=== PATIENT | female | born 1940 | race Hispanic/Latino ===

== ENCOUNTER 2019-11-30 17:32 | Inpatient (IN) | payer MEDICARE, OTHER ==
[~2019-11-30] VITALS: Ht 162.6 cm; Wt 79.4 kg
[2019-11-30] MEDS ORDERED: SODIUM CHLORIDE 0.9% 1000ML 1,000 ML IV STA ×3 (17:39→18:26)
[2019-11-30 18:27] LABS: BASOPHILS % 0.4 % (0.0-1.0); EOSINOPHILS % 0.1 % (0.0-6.0); HEMATOCRIT 31.4 % (34.2-44.1); LYMPHOCYTES # (AUTO) 1.8 (1.0-3.2); LYMPHOCYTES % 16.2 % (18.0-39.1); MEAN CORPUSCULAR HEMOGLOBIN 29.8 pg (28-32); MEAN CORPUSCULAR HGB CONC 31.8 g/dL (31-35); MEAN CORPUSCULAR VOLUME 93.5 fL (81-99); MONOCYTES # (AUTO) 0.3 (0.2-0.8); MONOCYTES % 2.8 % (4.4-11.3); NEUTROPHILS # (AUTO) 8.9 (2.1-6.9); NEUTROPHILS % 80.1 % (38.7-80.0); PLATELET COUNT 166 x10e3/uL (140-360); RED BLOOD COUNT 3.36 x10e6/uL (3.6-5.1); RED CELL DISTRIBUTION WIDTH 12.7 % (11.7-14.4)
--- NOTE | 2019-11-30 18:33 | Diagnostic Imaging Report ---
Examination: Single AP view of the chest. COMPARISON: None. INDICATION: Status post fall, syncope IMPRESSION: 1. Lines and Tubes: None 2. Lungs are grossly clear. No consolidation or effusion. 3. Cardiomediastinal silhouette is normal. Pulmonary vasculature is normal. Atherosclerotic calcification of the aortic arch. 4. No acute bony abnormalities. Signed by: Dr. Mark Bartlett M.D. on 11/30/2019 6:30 PM
--- NOTE | 2019-11-30 18:34 | Diagnostic Imaging Report ---
CT BRAIN WO HISTORY: Fall COMPARISON: None. Technique: Noncontrast axial scans were obtained from skull base to the vertex. Coronal and sagittal reconstructions obtained from the axial data. One or more of the following dose reduction techniques were used: Automated exposure control, adjustment of the mA and/or kV according to patient size, and/or utilization of iterative reconstruction technique. DISCUSSION: Scalp/Skull: Small subcutaneous calcified nodule in the right parietal scalp may be an inclusion cyst. No calvarial fracture. Brain sulci: Mildly prominent. Ventricles: Compensatory dilatation. Extra-axial spaces: Focal prominence of the subarachnoid space posterior to the cerebellar vermis could be due to an arachnoid cyst or a brittani cisterna magna. No additional masses or fluid collections. Carotid and vertebral artery calcifications are present. Parenchyma: Mild bilateral deep white matter hypodensity is likely chronic microvascular ischemic change. Otherwise, no masses, hemorrhage, or large vascular territory acute infarct. Dural sinuses: No abnormal densities. Sellar/Suprasellar region: Intact. Skull base: Intact. Incidental findings: Bilateral ocular lens replacement. IMPRESSION: 1. No acute intracranial abnormalities. 2. Mild supratentorial chronic microvascular ischemic change. Generalized cerebral volume loss. Signed by: Dr. Simon Krishnan M.D. on 11/30/2019 6:30 PM
[2019-11-30 18:41] LABS: PARTIAL THROMBOPLASTIN TIME 28.6 seconds (23.8-35.5)
[2019-11-30 18:46] LABS: INR 0.92; PROTHROMBIN TIME 12.9 seconds (11.9-14.5)
[2019-11-30 18:48] LABS: ALBUMIN 3.7 g/dL (3.5-5.0); ALBUMIN/GLOBULIN RATIO 1.1 (0.8-2.0); ANION GAP 18.6 mmol/L (8-16); CALCIUM 9.2 mg/dL (8.4-10.2); CREATININE, SERUM 2.3 mg/dL (0.57-1.11); POTASSIUM 3.6 mmol/L (3.5-5.1)
[2019-11-30 18:55] LABS: CREATINE KINASE MB 1.5 ng/mL (0-5.0)
--- NOTE | 2019-11-30 19:02 | Emergency Department Note ---
History of Present Illnes History of Present Illness Chief Complaint: General Medicine Complaints History of Present Illness This is a 79 year old female brought by her brother who reported pt had syncopal episode that lasted 1-3 minutes while eating dinner - he tried to arouse her but could not, eventually pt came to and he tried to load pt into vehicle and she passed out again; pt taken to room 5 and during triage pt actively seizing dr kincaid immediately notified ekg done crash cart brought into room and pt hooked up to [employer] bilateral ac 20 g established blood drawn and per md orders taken to ct stat does not smoke/drink. Historian: Family Member Arrival Mode: Car History limited by: condition of the patient Worm Grower Required: No Onset (how long ago): minute(s) Quality: passed out Radiation: non-radiation Severity: severe Onset quality: sudden Timing of current episode: intermittent Progression: waxing and waning Chronicity: new Relieving factors: none Exacerbating factors: none Associated symptoms: syncope Treatments prior to arrival: none Past Medical/Family History Physician Review I have reviewed the patient's past medical and family history. Any updates have been documented here. Past Medical History Recent Fever: No Clinical Suspicion of Infectio: No New/Unexplained Change in Ment: No Past Medical History: Hypertension, Diabetes, Hyperlipedemia Other Medical History: dementia Past Surgical History: Knee Replacement, Back Surgery Social History Smoking Cessation: Never Smoker Counseling Performed: No Alcohol Use: None Any Illegal Drug Use: No TB Exposure/Symptoms: No Physically hurt or threatened: No Family History Family history of heart diseas: Yes Other Any Pre-Existing Lines (PICC,: No Review of Systems Review of Systems Constitutional: weakness EENTM: no symptoms Cardiovascular: syncope Respiratory: no symptoms Gastrointestinal: no symptoms Genitourinary: no symptoms Musculoskeletal: no symptoms Neurological: no symptoms Psychological: no symptoms Endocrine: no symptoms Hematological/Lymphatic: no symptoms Review of other systems All other systems reviewed and negative. Physical Exam Related Data Allergies: Coded Allergies: Penicillins (Verified Allergy, Unknown, 11/30/19) Triage Vital Signs Vital Signs Date Time Temp Pulse Resp B/P (MAP) Pulse Ox O2 Delivery O2 Flow Rate FiO2 11/30/19 17:59 98.6 27 16 97/50 98 Vital signs reviewed: Yes Physical Exam CONSTITUTIONAL Constitutional: well-developed, ill appearing, other HENT HENT: normocephalic, atraumatic, oropharynx clear/moist, nose normal HENT L/R: left ext ear normal, right ext ear normal EYES Eyes: PERRL (pupils pinpt and non-reactive), conjunctivae normal NECK PULMONARY Pulmonary: breath sounds normal, other (decreased effort) CARDIOVASCULAR Cardiovascular: irregular rhythm, bradycardia GASTROINTESTINAL Abdominal: soft, nontender, bowel sounds normal GENITOURINARY Genitourinary: exam deferred SKIN Skin: warm, dry MUSCULOSKELETAL Musculoskeletal: ROM normal NEUROLOGICAL Neurological: no gross motor or sensory deficits, other (pt woke with painful stimuli, oriented to name/place not time) PSYCHOLOGICAL Psychological: other (flat affect) Results Laboratory Result Diagram: 11/30/19 1800 Laboratory Laboratory Tests Test 11/30/19 18:30 11/30/19 18:20 11/30/19 18:00 Magnesium Level 1.9 MG/DL (1.3-2.1) White Blood Count 11.04 x10e3/uL (4.8-10.8) Red Blood Count 3.36 x10e6/uL (3.6-5.1) Hemoglobin 10.0 g/dL (12.0-16.0) Hematocrit 31.4 % (34.2-44.1) Mean Corpuscular Volume 93.5 fL (81-99) Mean Corpuscular Hemoglobin 29.8 pg (28-32) Mean Corpuscular Hemoglobin Concent 31.8 g/dL (31-35) Red Cell Distribution Width 12.7 % (11.7-14.4) Platelet Count 166 x10e3/uL (140-360) Neutrophils (%) (Auto) 80.1 % (38.7-80.0) Lymphocytes (%) (Auto) 16.2 % (18.0-39.1) Monocytes (%) (Auto) 2.8 % (4.4-11.3) Eosinophils (%) (Auto) 0.1 % (0.0-6.0) Basophils (%) (Auto) 0.4 % (0.0-1.0) Neutrophils # (Auto) 8.9 (2.1-6.9) Lymphocytes # (Auto) 1.8 (1.0-3.2) Monocytes # (Auto) 0.3 (0.2-0.8) Eosinophils # (Auto) 0.0 (0.0-0.4) Basophils # (Auto) 0.0 (0.0-0.1) Absolute Immature Granulocyte (auto 0.04 x10e3/uL (0-0.1) Prothrombin Time 12.9 seconds (11.9-14.5) Prothromb Time International Ratio 0.92 Activated Partial Thromboplast Time 28.6 seconds (23.8-35.5) Sodium Level 139 mmol/L (136-145) Potassium Level 3.6 mmol/L (3.5-5.1) Chloride Level 104 mmol/L (98-107) Carbon Dioxide Level 20 mmol/L (22-29) Anion Gap 18.6 mmol/L (8-16) Blood Urea Nitrogen 37 mg/dL (7-26) Creatinine 2.30 mg/dL (0.57-1.11) Estimat Glomerular Filtration Rate 21 ML/MIN (60-) BUN/Creatinine Ratio 16 (6-25) Glucose Level 308 mg/dL (74-118) Calcium Level 9.2 mg/dL (8.4-10.2) Total Bilirubin 0.7 mg/dL (0.2-1.2) Aspartate Amino Transf (AST/SGOT) 30 IU/L (5-34) Alanine Aminotransferase (ALT/SGPT) 46 IU/L (0-55) Alkaline Phosphatase 92 IU/L (40-150) Creatine Kinase 96 IU/L (29-168) Creatine Kinase MB 1.50 ng/mL (0-5.0) Troponin I 0.012 ng/mL (0-0.300) Total Protein 7.2 g/dL (6.5-8.1) Albumin 3.7 g/dL (3.5-5.0) Globulin 3.5 g/dL (2.3-3.5) Albumin/Globulin Ratio 1.1 (0.8-2.0) Laboratory Tests Test 11/30/19 18:00 White Blood Count 11.04 x10e3/uL (4.8-10.8) Red Blood Count 3.36 x10e6/uL (3.6-5.1) Hemoglobin 10.0 g/dL (12.0-16.0) Hematocrit 31.4 % (34.2-44.1) Mean Corpuscular Volume 93.5 fL (81-99) Mean Corpuscular Hemoglobin 29.8 pg (28-32) Mean Corpuscular Hemoglobin Concent 31.8 g/dL (31-35) Red Cell Distribution Width 12.7 % (11.7-14.4) Platelet Count 166 x10e3/uL (140-360) Neutrophils (%) (Auto) 80.1 % (38.7-80.0) Lymphocytes (%) (Auto) 16.2 % (18.0-39.1) Monocytes (%) (Auto) 2.8 % (4.4-11.3) Eosinophils (%) (Auto) 0.1 % (0.0-6.0) Basophils (%) (Auto) 0.4 % (0.0-1.0) Neutrophils # (Auto) 8.9 (2.1-6.9) Lymphocytes # (Auto) 1.8 (1.0-3.2) Monocytes # (Auto) 0.3 (0.2-0.8) Eosinophils # (Auto) 0.0 (0.0-0.4) Basophils # (Auto) 0.0 (0.0-0.1) Absolute Immature Granulocyte (auto 0.04 x10e3/uL (0-0.1) Lab results reviewed: Yes Laboratory comments renal insufficiency Imaging Imaging results reviewed: Yes Impressions CT BRAIN WO HISTORY: Fall COMPARISON: None. Technique: Noncontrast axial scans were obtained from skull base to the vertex. Coronal and sagittal reconstructions obtained from the axial data. One or more of the following dose reduction techniques were used: Automated exposure control, adjustment of the mA and/or kV according to patient size, and/or utilization of iterative reconstruction technique. DISCUSSION: Scalp/Skull: Small subcutaneous calcified nodule in the right parietal scalp may be an inclusion cyst. No calvarial fracture. Brain sulci: Mildly prominent. Ventricles: Compensatory dilatation. Extra-axial spaces: Focal prominence of the subarachnoid space posterior to the cerebellar vermis could be due to an arachnoid cyst or a brittani cisterna magna. No additional masses or fluid collections. Carotid and vertebral artery calcifications are present. Parenchyma: Mild bilateral deep white matter hypodensity is likely chronic microvascular ischemic change. Otherwise, no masses, hemorrhage, or large vascular territory acute infarct. Dural sinuses: No abnormal densities. Sellar/Suprasellar region: Intact. Skull base: Intact. Incidental findings: Bilateral ocular lens replacement. IMPRESSION: 1. No acute intracranial abnormalities. 2. Mild supratentorial chronic microvascular ischemic change. Generalized cerebral volume loss. Signed by: Dr. Simon Krishnan M.D. on 11/30/2019 6:30 PM Examination: Single AP view of the chest. COMPARISON: None. INDICATION: Status post fall, syncope IMPRESSION: 1. Lines and Tubes: None 2. Lungs are grossly clear. No consolidation or effusion. 3. Cardiomediastinal silhouette is normal. Pulmonary vasculature is normal. Atherosclerotic calcification of the aortic arch. 4. No acute bony abnormalities. Signed by: Dr. Mark Bartlett M.D. on 11/30/2019 6:30 PM Diagnostics Tests Diagnostic test(s) reviewed: Yes Procedures 12 Lead ECG Interpretation Worm Grower: Interpreted by ED physician Date: November 30, 2019 Time: 17:48 Rhythm: A-V block Rate: bradycardia (24) QRS axis: normal Conduction: 3rd degree (with idioventricular beats) ST segments normal: Yes Clinical Impression: abnormal ECG Critical Care Time Critcal care necessary due to: cardiac failuer (3rd degree AV block) Critcal care time spent by me: discussion w consultants, evaluation patient response to tx, examination of patient, obtaining hx from patient/surrogate, order/review laboratory studies, order/review radiographic studies, re- evaluation of patient condition Subsequent provider I assumed direction of critical care for this patient from another provider of my specialty. Assessment & Plan Reassessment Reassessment I was called to room by nurse while I was in another patient's room - pt was minimally responsive, not seizing but HR 27 on monitor with complete heart block. As we were putting pacer pads on her, her heart rate came up to 70-80 and sinus rhythm and more responsive, answering questions, not post-ictal. I called Dr Espino and texted him the ECG and he spoke with Dr Vieira who will come place pacemaker. CBC, chem's, cardiac enzymes, PT/PTT, CT brain - r/o sick sinus syndrome, cerebral bleed, hyperkalemia, electrolyte abnl Assessment & Plan Final Impression: (1) Syncope and collapse (2) Complete heart block (3) SSS (sick sinus syndrome) (4) Renal insufficiency Assessment & Plan admit icu - I spoke with Dr Purdy and Dr Espino (who spoke with Dr Vieira) Depart Disposition: ADMITTED Last Vital Signs Date Time Temp Pulse Resp B/P (MAP) Pulse Ox O2 Delivery O2 Flow Rate FiO2 11/30/19 17:59 98.6 27 16 97/50 98 Medications in the ED Sodium Chloride 1,000 ml @ 0 mls/hr Q0M STAT IV ; Start 11/30/19 at 17:39; Stop 11/30/19 at 17:40; Status DC Sodium Chloride 1,000 ml @ 0 mls/hr Q0M STAT IV ; Start 11/30/19 at 18:20; Stop 11/30/19 at 18:25; Status DC Sodium Chloride 1,000 ml @ 0 mls/hr Q0M STAT IV ; Start 11/30/19 at 18:26; Stop 11/30/19 at 18:27; Status DC JB KINCAID MD November 30, 2019 19:02
[2019-11-30 19:12] LABS: CLARITY,URINE CLEAR (CLEAR); COLOR,URINE STRAW (YELLOW); LEUKOCYTE ESTERASE ,URINE NEGATIVE (NEGATIVE); NITRITE,URINE NEGATIVE (NEGATIVE)
[2019-11-30 19:13] LABS: BILIRUBIN,URINE NEGATIVE (NEGATIVE); KETONES,URINE NEGATIVE (NEGATIVE); PROTEIN,URINE DIPSTICK 2+ (NEGATIVE); URINE UROBILINOGEN 0.2 mg/dL (0.2 - 1)
[2019-11-30] MEDS ORDERED: DEXTROSE 50% SYRINGE 50 ML IV PRN (19:15)
--- OUTSIDE RECORDS SUMMARY | 2019-11-30 19:26 | XMS REPORT ---
Author Author [facility] t Organization [facility] Address [address] [place] [phone] Phone Unavailable Care Team Providers Care Principal Examiner Name Role Phone Jose KINCAID Attphys Unavailable Problems This patient has no known problems. Allergies, Adverse Reactions, Alerts This patient has no known allergies or adverse reactions. Medications This patient has no known medications. Procedures This patient has no known procedures. Results Test Description Test Time Test Comments Results Result Comments Source CHEST SINGLE (PORTABLE) 2019-11-30 18:29:00 [place] [id number] Patient Name: GEORGE ZALDIVAR MR #: [id number] : 1940 Age/Sex: 79/F Req #: [id number] Adm Physician: Ordered by: [facility] Report #: [id number] Location: ER Room/Bed: Procedure: [id number] DX/CHEST SINGLE (PORTABLE) Exam Date: 11/30/19 Exam Time: 1809 REPORT STATUS: Signed Examination: Single AP view of the chest. COMPARISON: None. INDICATION: Status post fall, syncope IMPRESSION: 1. Lines and Tubes: None 2. Lungs are grossly clear. No consolidation or effusion. 3. Cardiomediastinal silhouette is normal. Pulmonary vasculature is normal. Atherosclerotic calcification of the aortic arch. 4. No acute bony abnormalities. Signed by: Dr. Prachi Bartlett M.D. on 11/30/2019 6:30 PM Dictated By: PRACHI BARTLETT MD 29 Transcribed By: MARIO on 11/30/191829 COPY TO: MARTINA HEDRICK NP CT BRAIN WO 2019-11-30 18:26:00 [place] [id number] Patient Name: GEORGE ZALDIVAR MR #: [id number] : 1940 Age/Sex: 79/F Req #: [id number] Adm Physician: Ordered by: MARTINA HEDRICK NP Report #: [id number] Location: ER Room/Bed: Procedure: [id number] CT/CT BRAIN WO Exam Date: 11/30/19 Exam Time: 1808 REPORT STATUS: Signed CT BRAIN WO HISTORY: Fall COMPARISON: None. Technique: Noncontrast axial scans were obtained from skull base to the vertex. Coronal and sagittal reconstructions obtained from the axial data. One or more of the following dose reduction techniques were used: Automated exposure control, adjustment of the mA and/or kV according to patient size, and/or utilization of iterative reconstruction technique. DISCUSSION: Scalp/Skull: Small subcutaneous calcified nodule in the right parietal scalp may be an inclusion cyst. No calvarial fracture. Brain sulci: Mildly prominent. Ventricles: Compensatory dilatation. Extra-axial spaces: Focal prominence of the subarachnoid space posterior to the cerebellar vermis could be due to an arachnoid cyst or a brittani cisterna magna. No additional masses or fluid collections. Carotid and vertebral artery calcifications are present. Parenchyma: Mild bilateral deep white matter hypodensity is likely chronic microvascular ischemic change. Otherwise, no masses, hemorrhage, or large vascular territory acute infarct. Dural sinuses: No abnormal densities. Sellar/Suprasellar region: Intact. Skull base: Intact. Incidental findings: Bilateral ocular lens replacement. IMPRESSION: 1. No acute intracranial abnormalities. 2. Mild supratentorial chronic microvascular ischemic change. Generalized cerebral volume loss. Signed by: Dr. Simon Krishnan M.D. on 11/30/2019 6:30 PM Dictated By: SIMON KRISHNAN MD 29 Transcribed By: MARIO on 11/30/191829 COPY TO: MARTINA HEDRICK NP
[2019-11-30 19:28] LABS: BACTERIA,URINE FEW /HPF; EPITHELIAL CELLS,URINE FEW /LPF; WBC,URINE (MAN) 0-5 /HPF (0-5)
[2019-11-30] MEDS ORDERED: SODIUM CHLORIDE 0.9% 500ML 500 ML ONE (19:49)
[2019-11-30] MEDS ORDERED: MIDAZOLAM HCL 2 MG/2 ML VIAL ONE (19:49)
[2019-11-30] MEDS ORDERED: VANCOMYCIN 1GM/NS 250 ML 250 ML ONE (19:49)
[2019-11-30] MEDS ORDERED: FENTANYL CITRATE/PF 100MCG/2 ML INJ ONE (19:49)
[2019-11-30] MEDS ORDERED: BACITRACIN 50,000 UNIT VIAL ONE (19:49)
[2019-11-30] MEDS ORDERED: SODIUM CHLORIDE 0.9% 1000ML 2,000 ML ONE (19:50)
[2019-11-30] MEDS ORDERED: IOPAMIDOL 370 MG/ML 200 ML INFUS..BTL INJ ONE (19:50)
[2019-11-30] MEDS ORDERED: SODIUM CHLORIDE 0.9% 1000ML 1,000 ML ONE (20:37)
[2019-11-30 21:00] VITALS: BP 112/62
--- NOTE | 2019-11-30 21:14 | Consultation ---
DATE OF CONSULTATION: 11/30/2019 Initial EP Consultation REASON FOR CONSULTATION: Syncopal episode and complete heart block. HISTORY OF PRESENT ILLNESS: Ms. Seymour is a 79-year-old woman with no prior medical history, who presents to the hospital after having a syncopal episode and also seizure-like activity. The patient is visiting her brother from the [place] and has no prior problems. Today, she had approximately three syncopal episodes and subsequently presented to the emergency department. She is noted to have complete heart block with an escape rhythm of approximately 24 beats per minute with a left bundle branch morphology. EP was consulted for urgent pacemaker implantation. The patient has not been on any medications causing negative chronotropic response and she has no other medical issues. REVIEW OF SYSTEMS: She currently denies having any fevers, chills, lightheadedness, dizziness, discharge of the eyes, nose, mouth, swollen lymph nodes in the neck or groin, chest pains, palpitations, shortness of breath, coughing, abdominal pain, nausea, vomiting, dysuria, hematuria, swelling in the joints, joint pain, numbness, tingling, weakness, skin rashes, ulcers, swelling of legs or arms, depression or anxiety. PAST MEDICAL HISTORY: Hypertension, complete heart block, intermittent. PAST SURGICAL HISTORY: The patient has not had any cardiac surgery. She has had some back surgery. SOCIAL HISTORY: She does not smoke any cigarettes, drink alcohol or use any illicit drugs. FAMILY HISTORY: No significant family history of early cardiac or sudden arrhythmias. MEDICATIONS: Aspirin, insulin, lispro p.r.n. ALLERGIES: PENICILLIN. PHYSICAL EXAMINATION: VITAL SIGNS: Temperature is 98.6, heart rate is currently sinus 70s to 80s. Blood pressure is 100/50, respiratory rate is 12. GENERAL: No acute distress. Alert, awake, oriented x3. HEENT: Normocephalic, atraumatic. Pupils are equal, reactive to light. LYMPH NODES: No supraclavicular or submandibular lymphadenopathy appreciated. CVS: S1, S2. Regular rate and rhythm. RESPIRATORY: Good air entry globally. No wheezing. GI. Abdomen is soft and nontender. : No bladder fullness. No CVA tenderness. MUSCULOSKELETAL: No effusions or erythema noted in the knees or elbows bilaterally. NEURO: Moves all extremities spontaneously. No focal deficits. EXTREMITIES: No edema in lower extremities, upper extremities bilaterally. SKIN: No bruising or ulcers noted. PSYCH: Mood is normal. Answers questions appropriately. LABORATORY DATA: White blood cell 11, hemoglobin 10, platelet is 166. Creatinine is 2.3. Transthoracic echocardiogram demonstrates normal left ventricular ejection fraction. ASSESSMENT AND PLAN: Ms. Seymour is a 79-year-old woman with a history of hypertension, who presented to the hospital after having a syncopal episode as well as seizure-like activity. She was noted to have complete heart block with escape rhythm with left bundle branch block morphology, approximately 25 beats per minute. The patient has not had any reversible causes to complete heart block. I have discussed with her and her brother at bedside the pathophysiology behind heart block as well as treatment modalities of it which mainly will include the pacemaker implantation. I described the procedure in detail to the patient and her brother and they have had all the questions answered in satisfied manner. We will proceed with placing a pacemaker dual-chamber urgently. Thank you very much for involving me in Ms. Seymour care. Please feel free to call if questions. DO LJ BETHEA/VIRY /[id number]
[2019-11-30 21:30] VITALS: BP 115/69
--- NOTE | 2019-11-30 21:30 | NUR ---
Received patient from ammunition assembly laborer s/p pacemaker insertion to left chest. Pressure dressing CDI, arm in sling. No complaints of pain at this time. STAT EKG and CXR done per MD order. Pt unaware of home meds, states her son has the medications with him. Pt not sure of son's phone number. Will follow up.
[2019-11-30 22:00] VITALS: BP 112/62
[2019-11-30] MEDS ORDERED: ACETAMINOPHEN/CODEINE 300MG - 30MG TAB PO PRN (22:15)
[2019-11-30] MEDS ORDERED: VANCOMYCIN 500MG/NS 0.9% 100ML 100 ML IV SCH (22:15)
[2019-11-30] MEDS: INSULIN LISPRO 100 UNIT/1 ML 3ML VIAL SQ SCH (22:47)
--- NOTE | 2019-11-30 22:59 | Diagnostic Imaging Report ---
EXAMINATION: CHEST SINGLE (PORTABLE) INDICATION: Pacemaker insertion COMPARISON: Chest radiograph 11/30/2019. FINDINGS: TUBES and LINES: Interval placement of left sided pacemaker with leads overlying the right atrium and ventricle. LUNGS: Lungs are well inflated. Minimal patchy right basilar opacity, likely atelectasis. There is no evidence of pneumonia or pulmonary edema. PLEURA: No pleural effusion or pneumothorax. HEART AND MEDIASTINUM: The cardiomediastinal silhouette is unremarkable. There are atherosclerotic calcifications within the aorta. BONES AND SOFT TISSUES: No acute osseous lesion. Soft tissues are unremarkable. UPPER ABDOMEN: No free air under the diaphragm. IMPRESSION: Interval placement of left sided pacemaker. No pneumothorax. Signed by: Dr. Nusrat Landers MD on 11/30/2019 10:56 PM
[2019-11-30 23:00] VITALS: BP 134/74
--- NOTE | 2019-11-30 23:55 | Operative Report ---
DATE OF PROCEDURE: 11/30/2019 SURGEON: BA TELLO DO CLINICAL INDICATION: Ms. Seymour is a 79-year-old woman with a history of intermittent complete heart block, who presented to hospital with a syncopal episode. She has no reversible causes and will receive a dual-chamber pacemaker. PROCEDURES PERFORMED: 1. Implantation of a [employer] dual-chamber pacemaker. 2. Moderate sedation. PROCEDURE IN DETAIL: After informed consent was obtained, the patient was prepped and draped in the usual manner. Moderate sedation was used for procedure and a total of 2 mg IV Versed and 100 mcg IV fentanyl were given by Caleb Ramires, for a total of 35 minutes. The patient monitored by myself and the nurse. Preprocedure time-out and antibiotics were given to the patient. Left upper extremity venogram was not performed due to the urgency of the procedure. Using modified Seldinger technique, 1 complicated venous access obtained and wire was subsequently inserted into the inferior vena cava. Afterwards, 1% lidocaine was given to the left region and 2 cm incision was created over the left chest. A pocket was then created over the pectoralis muscle and complicated venous access was obtained. A 6-Haitian peel-away sheath was passed over the wire and a right ventricular pacing lead was inserted through that sheath and brought to the right ventricular apex using pull-out technique. The lead was screwed to myocardium, hub lead demonstrated adequate threshold and sheath was peeled. Afterwards, another 6-Haitian peel-away sheath was inserted over the wire. Right atrial pacing lead was inserted through sheath about the right atrial appendage using a preformed J stylet. The lead was screwed to myocardium, hub lead demonstrated adequate threshold and sheath was peeled. Both leads and sutured to muscle using 0 silk. The pocket was irrigated thoroughly with antibiotic solution and hemostasis was then confirmed. The generator was brought into the field and the leads were plugged into the generator and generator and leads were introduced into the pocket and the generator was sutured to muscle using 0 silk, then in a standard 3-layer fashion. The pocket was closed using Vicryl and skin glue was applied. At the conclusion of the procedure, the patient tolerated the procedure well without any complications. Fluoroscopy demonstrated normal cardiac silhouette, no evidence of pericardial effusion, no pneumothorax, no retained products within the pocket. IMPLANTED DEVICE: 1. [employer] Jose model UD7187, serial #[id number]. 2. RA 8TC/46, serial #[id number]. 3. RV 2088TC/52, serial #[id number]. MEASUREMENTS: 1. RA 2.8 mV, 380 ohms, 0.75 V at 0.4 milliseconds. 2. RV 5.9 mV, 980 ohms, 1 V at 0.4 milliseconds. 3. Parameters DDDR 60/120. CONCLUSION: 1. Successful placement of [employer] dual-chamber pacing. 2. No immediate complications. POSTPROCEDURE PLAN: 1. Bed rest for 6 hours. The patient can resume her prior diet. 2. Postprocedure antibiotics and pain medication be given. 3. Postprocedure chest x-ray and EKG to be performed. 4. Incision to be kept absolutely dry for two weeks. 5. Left arm to stay in a sling overnight and tomorrow morning, we will remove the sling. For next two weeks when she is sleeping, use the sling. However during the day time, use the arm for daily activities. Do not lift it over the shoulder in any direction, do not lift more than 10 pounds of weight. 6. On discharge, please follow up with Dr. Russo in clinic in 2 weeks. BA TELLO DO ML/MODL /[id number]
[2019-12-01] VITALS (7 sets, daily range): BP systolic 101–131; BP diastolic 49–68
[2019-12-01 06:15] LABS: BASOPHILS % 0.3 % (0.0-1.0); HEMATOCRIT 31.8 % (34.2-44.1); HEMOGLOBIN 10.1 g/dL (12.0-16.0); LYMPHOCYTES # (AUTO) 0.9 (1.0-3.2); LYMPHOCYTES % 7.8 % (18.0-39.1); MEAN CORPUSCULAR HEMOGLOBIN 30.2 pg (28-32); MEAN CORPUSCULAR HGB CONC 31.8 g/dL (31-35); MEAN CORPUSCULAR VOLUME 95.2 fL (81-99); MONOCYTES # (AUTO) 0.8 (0.2-0.8); MONOCYTES % 7.4 % (4.4-11.3); NEUTROPHILS # (AUTO) 9.5 (2.1-6.9); NEUTROPHILS % 84.1 % (38.7-80.0); PLATELET COUNT 155 x10e3/uL (140-360); RED BLOOD COUNT 3.34 x10e6/uL (3.6-5.1); RED CELL DISTRIBUTION WIDTH 12.6 % (11.7-14.4)
[2019-12-01 06:44] LABS: ALBUMIN 3.4 g/dL (3.5-5.0); CHOL/HDL RATIO 3.1 (3.0-3.6); CREATININE, SERUM 1.64 mg/dL (0.57-1.11)
[2019-12-01 07:27] LABS: CREATINE KINASE MB 2.4 ng/mL (0-5.0)
[2019-12-01] MEDS: INSULIN LISPRO 100 UNIT/1 ML 3ML VIAL SQ SCH (07:30)
[2019-12-01] MEDS ORDERED: ASPIRIN 81 MG ENTERIC COATED PO SCH (09:00)
--- NOTE | 2019-12-01 10:57 | Consultation ---
DATE OF CONSULTATION: Cardiology consultation REQUESTING PHYSICIAN: Damion Purdy MD. REASON FOR CONSULTATION: Syncope. HISTORY OF PRESENT ILLNESS: Ms. Seymour is a 79-year-old female who reports that she has a prior medical history of type 2 diabetes. Otherwise, no any other history. She was brought into the ER due to multiple syncopal episodes and also seizure-like activity. There was a witness in the ER. She reports that she lives in [place] and was here visiting her brother. However, she lost consciousness in home and also while getting into the car on her way here and another time after. On arrival in the ER, she was noted to go into a complete heart block and became unresponsive at that time. EP was consulted for urgent evaluation and need for pacemaker. Now, the patient is status post a pacemaker placed yesterday at around 9 o'clock at night. She reports that she feels very well. At this time, she has no complaints. She denies any chest pain. Denies any shortness of breath. Denies palpitations, dizziness, or recurrence of her syncopal episode. She states that she feels very well. REVIEW OF SYSTEMS: Negative except as mentioned above. PAST MEDICAL HISTORY: Diabetes mellitus. PAST SURGICAL HISTORY: The patient reports that she has had some back surgery. SOCIAL HISTORY: Does not drink or smoke. States that she lives alone. PHYSICAL EXAMINATION: VITAL SIGNS: Temperature 98.4, pulse 68, respiratory rate 13, blood pressure 101/49, and oxygen saturation 95% on 2 L nasal cannula. GENERAL: Alert and oriented x3. Resting comfortably in bed, does not appear to be in any acute distress. NECK: Supple. No JVD noted. CARDIOVASCULAR: Regular rate and rhythm. Normal S1, S2. No murmurs, no gallops. CHEST: Left-sided pacemaker noted with a compression dressing in place. No signs of bleeding noted. LUNGS: Clear to auscultation throughout. No wheezing. No rhonchi or crackles. ABDOMEN: Soft, nontender. EXTREMITIES: Lower extremities; no edema. MEDICATIONS: Aspirin 81 mg p.o. daily. LABORATORY DATA: WBC 11.35, hemoglobin 10.1, hematocrit 31.8, and platelets 155. Sodium 144, potassium 4.0, BUN 34, and creatinine 1.64. Chest x-ray with left-sided pacemaker noted. No pneumothorax. TELEMETRY: Normal sinus rhythm. IMPRESSION: 1. Complete heart block, status post pacemaker. 2. Left bundle-branch block. 3. Hypertension. 4. Diabetes mellitus type 2. RECOMMENDATION: The patient is okay to be discharged and sent home on oral antibiotics. The patient has been told to establish care with a lime trimmer where she lives and to follow up with them within the next 1-2 weeks. Continue the above-listed cardiac medications. Continue to monitor surgical site for any signs of infection. We thank you for this consultation and allowing us to participate in this patient's care. Dictated by Anabell Yang NP Otis Espino MD JWV/MODL /[id number]
[2019-12-01] MEDS ORDERED: MINOCYCLINE HCL 50 MG CAP PO SCH (11:00)
[2019-12-01] MEDS ORDERED: MINOCYCLINE HCL50 MG PO (11:00)
[2019-12-01] MEDS ORDERED: ASPIRIN EC81 MG PO (11:00)
--- NOTE | 2019-12-01 21:08 | Discharge Summary ---
ADMISSION DIAGNOSES: 1. Complete heart block. 2. Syncopal episode secondary to complete heart block. 3. Hypertension. 4. Type 2 diabetes. 5. Dementia. DISCHARGE DIAGNOSES: 1. Complete heart block. 2. Syncopal episode secondary to complete heart block. 3. Hypertension. 4. Type 2 diabetes. 5. Dementia. 6. Status post dual chamber pacemaker. HISTORY: Type 2 diabetes, hypertension, cirrhosis, and dementia. SURGICAL HISTORY: Back surgery and bilateral total knee replacement. FAMILY HISTORY: The patient's mom and dad have diabetes and cancer. Her dad also had a stroke and a heart attack. SOCIAL HISTORY: Noncontributory. HOSPITAL COURSE: A 79-year-old female admits after having multiple syncopal episodes yesterday. In the ER, she seized and was observed to have a third-degree heart block. EP was consulted for pacemaker placement. After the pacemaker was placed the patient was started on aspirin and minocycline. CT of the brain was done, which was negative. After the procedure, the patient is feeling much better and ready for dischargehome. She was advised to get a primary care and heavy machinery assembler once she gets back to her hometown. The patient and son understand discharge instructions and agreed to plan. Vital signs stable, patient afebrile. Dictated by Yara Davalos NP MD MANJU Jaffe/SEANL /[id number]
== END 2019-12-01 12:00 | disposition home or self-care (01) | DRG 243 ==
LOC: ER 17:32 → EDBD 17:32 → ERHOLD 19:23 → ICU 21:21
PROVIDERS: ADMIT Internal Medicine; ATTEND Internal Medicine
PROC: 0JH606Z Insertion of Pacemaker, Dual Chamber into Chest Subcutaneous Tissue and Fascia, Open Approach (ICD-10-PCS; principal; 2019-11-30)
PROC: 02HK3JZ Insertion of Pacemaker Lead into Right Ventricle, Percutaneous Approach (ICD-10-PCS; 2019-11-30)
PROC: 02H63JZ Insertion of Pacemaker Lead into Right Atrium, Percutaneous Approach (ICD-10-PCS; 2019-11-30)
DX: I44.2 Atrioventricular block, complete (principal); N17.9 Acute kidney failure, unspecified; F03.90 Unspecified dementia, unspecified severity, without behavioral disturbance, psychotic disturbance, mood disturbance, and anxiety; K74.60 Unspecified cirrhosis of liver; I44.7 Left bundle-branch block, unspecified; I12.9 Hypertensive chronic kidney disease with stage 1 through stage 4 chronic kidney disease, or unspecified chronic kidney disease; N18.3 Chronic kidney disease, stage 3 (moderate); E11.22 Type 2 diabetes mellitus with diabetic chronic kidney disease; Z11.59 Encounter for screening for other viral diseases
CPT/HCPCS: 33208; 36415; 70450; 71045; 80053; 80061; 81001; 82550; 82553; 82948; 83735; 84484; 85025; 85610; 85730; 87086; 92950; 93005; 93306; 96372; 99152; 99153; 99284; C1769; C1785; C1898; J2250; J3010; J3370; J7030; J7040; Q9967; U0002

== ENCOUNTER 2020-01-16 10:31 | Emergency (ER) | payer MEDICARE ==
[~2020-01-16] VITALS: Ht 162.6 cm; Wt 79.4 kg
[~2020-01-16 10:31] MED LIST: ASPIRIN EC81 MG PO; MINOCYCLINE HCL50 MG PO
[2020-01-16 11:35] LABS: BASOPHILS # (AUTO) 0.1 (0.0-0.1); BASOPHILS % 0.8 % (0.0-1.0); EOSINOPHILS # (AUTO) 0.1 (0.0-0.4); EOSINOPHILS % 1.2 % (0.0-6.0); HEMATOCRIT 31.6 % (34.2-44.1); HEMOGLOBIN 10.3 g/dL (12.0-16.0); LYMPHOCYTES # (AUTO) 1.4 (1.0-3.2); LYMPHOCYTES % 17.6 % (18.0-39.1); MEAN CORPUSCULAR HEMOGLOBIN 29.7 pg (28-32); MEAN CORPUSCULAR HGB CONC 32.6 g/dL (31-35); MEAN CORPUSCULAR VOLUME 91.1 fL (81-99); MONOCYTES # (AUTO) 0.5 (0.2-0.8); MONOCYTES % 6.3 % (4.4-11.3); NEUTROPHILS # (AUTO) 5.7 (2.1-6.9); NEUTROPHILS % 73.8 % (38.7-80.0); PLATELET COUNT 171 x10e3/uL (140-360); RED BLOOD COUNT 3.47 x10e6/uL (3.6-5.1); RED CELL DISTRIBUTION WIDTH 12.6 % (11.7-14.4)
--- NOTE | 2020-01-16 11:48 | Diagnostic Imaging Report ---
Examination: Single AP view of the chest. COMPARISON: 11/30/2019 INDICATION: Shortness of breath DISCUSSION: Left subclavian approach implantable cardiac device body is unchanged in position. Lungs are well-inflated and without focal airspace consolidation, pleural effusion, or pneumothorax. Skinfold projects over the lateral left lung base. Stable cardiomediastinal contour with tortuosity and atherosclerotic calcification of the thoracic aorta No acute osseous abnormalities. IMPRESSION: 1. No acute cardiopulmonary abnormalities. Signed by: Dr. Fran Granger M.D. on 01/16/2020 11:44 AM
[2020-01-16 11:55] LABS: ALBUMIN 3.8 g/dL (3.5-5.0); ALBUMIN/GLOBULIN RATIO 1.2 (0.8-2.0); ANION GAP 13.8 mmol/L (8-16); CALCIUM 9.8 mg/dL (8.4-10.2); CREATININE, SERUM 1.52 mg/dL (0.57-1.11); POTASSIUM 3.8 mmol/L (3.5-5.1)
[2020-01-16 12:07] LABS: CREATINE KINASE MB 1.1 ng/mL (0-5.0)
--- NOTE | 2020-01-16 12:19 | Emergency Department Note ---
History of Present Illnes History of Present Illness Chief Complaint: Respiratory History of Present Illness This is a 79 year old female arrives to the ED with complaints of shortness of breath again today, denies any other complaints. Patient states she is able to walk normally without any difficulties. She denies any cough or fever. Chief Complaint Comment C/O SOB STARTED THIS MORNING DENIES CP DENIES N/V/D DENIES FEVER/MUSCLE ACHES/CHILLS DENIES COPD/ASTHMA NEVER SMOKED DOES NOT DRINK DENIES DOING ANYTHING STRENUOUS SEEN BY DR TONG Historian: Patient Arrival Mode: Car Onset (how long ago): hour(s) Onset quality: sudden Duration (how long): hour(s) Timing of current episode: constant Progression: unchanged Chronicity: new Relieving factors: none Exacerbating factors: none Past Medical/Family History Physician Review I have reviewed the patient's past medical and family history. Any updates have been documented here. Past Medical History Recent Fever: No Clinical Suspicion of Infectio: No New/Unexplained Change in Ment: No Past Medical History: Hypertension, Diabetes, Hyperlipedemia Other Medical History: dementia Past Surgical History: Knee Replacement, Back Surgery Social History Smoking Cessation: Unknown if ever smoked Counseling Performed: No Alcohol Use: None Any Illegal Drug Use: No Physically hurt or threatened: No Other Any Pre-Existing Lines (PICC,: No Review of Systems Review of Systems Constitutional: Reports no symptoms EENTM: Reports no symptoms Cardiovascular: Reports no symptoms Respiratory: Reports as per HPI Gastrointestinal: Reports no symptoms Genitourinary: Reports no symptoms Musculoskeletal: Reports no symptoms Integumentary: Reports no symptoms Neurological: Reports no symptoms Psychological: Reports no symptoms Endocrine: Reports no symptoms Hematological/Lymphatic: Reports no symptoms Physical Exam Related Data Allergies: Coded Allergies: Penicillins (Verified Allergy, Unknown, 11/30/19) Triage Vital Signs Vital Signs Date Time Temp Pulse Resp B/P (MAP) Pulse Ox O2 Delivery O2 Flow Rate FiO2 01/16/20 10:46 98.5 82 18 156/69 100 Room Air Vital signs reviewed: Yes Physical Exam CONSTITUTIONAL Constitutional: Present well-developed, Present well-nourished HENT HENT: Present normocephalic, Present atraumatic, Present oropharynx clear/moist, Present nose normal HENT L/R: Present left ext ear normal, Present right ext ear normal EYES Eyes: Reports PERRL, Reports conjunctivae normal NECK Neck: Present ROM normal PULMONARY Pulmonary: Present effort normal, Present breath sounds normal CARDIOVASCULAR Cardiovascular: Present regular rhythm, Present heart sounds normal, Present capillary refill normal, Present normal rate GASTROINTESTINAL Abdominal: Present soft, Present nontender, Present bowel sounds normal GENITOURINARY Genitourinary: Present exam deferred SKIN Skin: Present warm, Present dry MUSCULOSKELETAL Musculoskeletal: Present ROM normal NEUROLOGICAL Neurological: Present alert, Present oriented x 3, Present no gross motor or sensory deficits PSYCHOLOGICAL Psychological: Present mood/affect normal, Present judgement normal Results Laboratory Result Diagram: 01/16/20 1056 01/16/20 1056 Laboratory Laboratory Tests Test 01/16/20 10:56 White Blood Count 7.68 x10e3/uL (4.8-10.8) Red Blood Count 3.47 x10e6/uL (3.6-5.1) Hemoglobin 10.3 g/dL (12.0-16.0) Hematocrit 31.6 % (34.2-44.1) Mean Corpuscular Volume 91.1 fL (81-99) Mean Corpuscular Hemoglobin 29.7 pg (28-32) Mean Corpuscular Hemoglobin Concent 32.6 g/dL (31-35) Red Cell Distribution Width 12.6 % (11.7-14.4) Platelet Count 171 x10e3/uL (140-360) Neutrophils (%) (Auto) 73.8 % (38.7-80.0) Lymphocytes (%) (Auto) 17.6 % (18.0-39.1) Monocytes (%) (Auto) 6.3 % (4.4-11.3) Eosinophils (%) (Auto) 1.2 % (0.0-6.0) Basophils (%) (Auto) 0.8 % (0.0-1.0) Neutrophils # (Auto) 5.7 (2.1-6.9) Lymphocytes # (Auto) 1.4 (1.0-3.2) Monocytes # (Auto) 0.5 (0.2-0.8) Eosinophils # (Auto) 0.1 (0.0-0.4) Basophils # (Auto) 0.1 (0.0-0.1) Absolute Immature Granulocyte (auto 0.02 x10e3/uL (0-0.1) Sodium Level 139 mmol/L (136-145) Potassium Level 3.8 mmol/L (3.5-5.1) Chloride Level 103 mmol/L (98-107) Carbon Dioxide Level 26 mmol/L (22-29) Anion Gap 13.8 mmol/L (8-16) Blood Urea Nitrogen 32 mg/dL (7-26) Creatinine 1.52 mg/dL (0.57-1.11) Estimat Glomerular Filtration Rate 33 ML/MIN (60-) BUN/Creatinine Ratio 21 (6-25) Glucose Level 181 mg/dL (74-118) Calcium Level 9.8 mg/dL (8.4-10.2) Total Bilirubin 1.0 mg/dL (0.2-1.2) Aspartate Amino Transf (AST/SGOT) 28 IU/L (5-34) Alanine Aminotransferase (ALT/SGPT) 40 IU/L (0-55) Alkaline Phosphatase 84 IU/L (40-150) Creatine Kinase 98 IU/L (29-168) Creatine Kinase MB 1.10 ng/mL (0-5.0) Troponin I 0.005 ng/mL (0-0.300) Total Protein 7.0 g/dL (6.5-8.1) Albumin 3.8 g/dL (3.5-5.0) Globulin 3.2 g/dL (2.3-3.5) Albumin/Globulin Ratio 1.2 (0.8-2.0) Lab results reviewed: Yes Imaging Imaging results reviewed: Yes Impressions Normal Procedures 12 Lead ECG Interpretation ECG Interpretation : ECG: ECG 1 [employer]atessen Department Manager: Interpreted by ED physician Prior ECG tracings: reviewed Rhythm: sinus rhythm QRS axis: right Conduction: right bundle branch block T wave inversion: III, V1 Clinical Impression: non-specific ECG Assessment & Plan Medical Decision Making MDM 79-year-old well-appearing female arrives to the ED with complaints of shortness of breath. Patient has underlying dementia, on arrival to the emergency room patient is well-appearing, no evidence of tachypnea, patient was not hypoxic during entire ER stay, was not any respiratory distress. Given patient's history of diabetes, lab work was obtained to ensure no atypical presentation of ACS was present. Lab work was unremarkable. Patient basically daily. Patient stable for discharge home with pulmonary follow-up. Patient's family informed. Assessment & Plan Final Impression: (1) Dyspnea Depart Disposition: HOME, SELF-CARE Last Vital Signs Date Time Temp Pulse Resp B/P (MAP) Pulse Ox O2 Delivery O2 Flow Rate FiO2 01/16/20 11:14 98.4 74 20 159/64 100 01/16/20 10:46 Room Air Home Meds Active Scripts Minocycline Hcl (MINOCYCLINE HCL) 50 Mg Capsule, 100 MG PO Q12HR for 10 Days Prov:MARI ROSARIO NP 12/01/19 Aspirin (ASPIRIN EC) 81 Mg Tablet.dr, 81 MG PO QAM for 30 Days Prov:MARI ROSARIO NP 12/01/19 EDMUNDO TONG DO Jan 16, 2020 12:19
== END 2020-01-16 12:35 | disposition home or self-care (01) ==
LOC: ER 12:07
DX: R06.00 Dyspnea, unspecified (principal); E11.65 Type 2 diabetes mellitus with hyperglycemia; F03.90 Unspecified dementia, unspecified severity, without behavioral disturbance, psychotic disturbance, mood disturbance, and anxiety; I10 Essential (primary) hypertension; E78.5 Hyperlipidemia, unspecified
CPT/HCPCS: 36415; 71045; 80053; 82550; 82553; 84484; 85025; 93005; 99283